=== PATIENT | female | born 1950 | race Caucasian/White ===

== ENCOUNTER 2017-10-05 16:06 | Emergency (ER) | payer BC, OTHER ==
--- NOTE | 2017-10-05 16:25 | Emergency Department Record ---
History of Present Illness - General Chief Complaint: Knee injury Stated Complaint: R KNEE PAIN Time Seen by Provider: 10/05/17 16:19 Source: Patient Mode of Arrival: Ambulatory Limitations: No limitations - History of Present Illness Initial Comments: 67 yo female presents with right knee pain. She tripped over a stool yesterday. She is able to walk but with some pain. No significant swelling. No clicking or popping. No history of prior knee surgery. She has some history of OA of the knee. PCP [facility] Fab[facility]. Complaint: Knee injury Onset/Timin -: Days(s) Injury: Knee: Right Type of Injury: Blunt Place: Home Severity: Severe Improves With: Nothing Worsens With: Weight bearing Context: Fall - Related Data Home Medications Medication Instructions Recorded Confirmed Last Taken Acetaminophen [Tylenol Arthritis] 650 mg PO ASDIR 10/05/17 10/05/17 Unknown Atorvastatin Calcium 20 mg PO DAILY 10/05/17 10/05/17 Unknown Bupropion HCl [Bupropion Xl] 150 mg PO DAILY 10/05/17 10/05/17 Unknown Citalopram Hydrobromide 40 mg PO DAILY 10/05/17 10/05/17 Unknown [Citalopram HBr] Hydrochlorothiazide 25 mg PO DAILY 10/05/17 10/05/17 Unknown Levothyroxine Sodium [Synthroid] 150 mg PO DAILY 10/05/17 10/05/17 Unknown Metoprolol Succinate [Toprol Xl] 50 mg PO DAILY 10/05/17 10/05/17 Unknown Naproxen 250 mg PO BID 10/05/17 10/05/17 Unknown Oxybutynin Chloride [Ditropan] 5 mg PO DAILY 10/05/17 10/05/17 Unknown Previous Rx's Medication Instructions Recorded Hydrocodone/Acetaminophen [Combes 1 each PO TID #12 tablet 10/05/17 5-325 Tablet] Allergies Allergy/AdvReac Type Severity Reaction Status Date / Time Penicillins Allergy HIVES Verified 10/05/17 16:12 Travel Screening - Travel/Exposure Within Last 30 Days Have you traveled within the last 30 days?: No Review of Systems Constitutional: Denies: Chills, Fever, Malaise, Weakness Eyes: Denies: Eye discharge ENT: Denies: Congestion, Throat pain Respiratory: Denies: Cough Cardiovascular: Denies: Chest pain, Syncope Endocrine: Denies: Fatigue Gastrointestinal: Denies: Abdominal pain, Diarrhea, Nausea, Vomiting Genitourinary: Denies: Dysuria, Urgency Musculoskeletal: Reports: Arthralgia. Denies: Back pain, Joint swelling, Myalgia Skin: Denies: Bruising, Change in color, Rash Neurological: Denies: Confusion, Headache Psychiatric: Denies: Anxiety Hematological/Lymphatic: Denies: Blood Clots, Easy bleeding, Easy bruising, Swollen glands Past Medical History - SOCIAL HISTORY Smoking Status: Current every day smoker Alcohol Use: None Drug Use: None - RESPIRATORY Hx Respiratory Disorders: No - CARDIOVASCULAR Hx Cardio Disorders: Yes Hx Hypertension: Yes Comment:: stent placed, high cholesterol - NEURO Hx Neuro Disorders: No - GI Hx GI Disorders: No - Hx Genitourinary Disorders: Yes Hx Bladder Problem: Yes - ENDOCRINE Hx Endocrine Disorders: Yes Hx Thyroid Disease: Yes - MUSCULOSKELETAL Hx Musculoskeletal Disorders: Yes Hx Arthritis: Yes - PSYCH Hx Psych Problems: Yes Hx Anxiety: Yes - HEMATOLOGY/ONCOLOGY Hx Hematology/Oncology Disorders: No Family Medical History Any Significant Family History?: No Physical Exam - General General Appearance: Alert, Oriented x3, Cooperative, No acute distress Limitations: No limitations - Head Head exam: Atraumatic, Normal inspection - Eye Eye exam: Normal appearance. negative: Conjunctival injection, Scleral icterus - ENT ENT exam: Normal exam, Mucous membranes moist Ear exam: Normal external inspection Nasal Exam: Normal inspection - Neck Neck exam: Normal inspection - Rectal Rectal exam: Deferred - exam: Deferred - Extremities Extremities exam: Normal inspection, Full ROM, Tenderness. negative: Joint swelling Image of Full Body: 1 - Mild anterior knee tenderness, no swelling, no edema, stable to anterior and posterior drawer, - Back Back exam: Reports: Full ROM. Denies: Tenderness - Neurological Neurological exam: Alert, Oriented X3 - Psychiatric Psychiatric exam: Normal affect, Normal mood - Skin Skin exam: Dry, Intact, Normal color, Warm Course Vital Signs 10/05/17 16:10 Temperature 98.0 F Pulse Rate 67 Respiratory 16 Rate Blood Pressure 141/74 Pulse Ox 100 - Reevaluation(s) Reevaluation #1: 10/05/17 16:40 The knee XR was reviewed. Degenerative changes noted. No acute displaced fracture seen. Disposition Disposition: Discharge Clinical Impression: Contusion of knee, right Qualifiers: Encounter type: initial encounter Qualified Code(s): S80.01XA - Contusion of right knee, initial encounter Disposition: Home, Self-Care Condition: (1) Good Instructions: Knee Sprain (ED) Additional Instructions: Ice the knee to minimize swelling Avoid weight bearing with the pain Recheck the knee next week if any pain continues. Prescriptions: Hydrocodone/Acetaminophen [Combes 5-325 Tablet] 1 each PO TID #12 tablet Forms: Patient Portal Access Time of Disposition: 16:44 Quality - Quality Measures Quality Measures: N/A - Blood Pressure Screening Does Patient Have Any of the Following: No Blood Pressure Classification: Hypertensive Reading Systolic Measurement: 141 Diastolic Measurement: 74 Screening for High Blood Pressure: < Pre-Hypertensive BP, F/U Documented > [ [id number]] Pre-Hypertensive Follow-up Interventions: Referral to alternative/primary care provider.
--- NOTE | 2017-10-06 07:41 | RADIOLOGY REPORT ---
EXAM: KNEE, RIGHT 4 VIEWS HISTORY: TRIPPED YESTERDAY AND LANDED ON THE RIGHT KNEE. RIGHT KNEE PAIN. TECHNIQUE: Four views of the right knee were obtained. COMPARISON: None. ENCOUNTER: Initial. FINDINGS: The bones appear intact. There is no acute fracture, dislocation, or joint effusion. There are mild tricompartmental arthritic changes with associated marginal osteophytes. There is mild joint space narrowing within the medial compartment. IMPRESSION: 1. NO ACUTE RIGHT KNEE PATHOLOGY. 2. MILD TRICOMPARTMENTAL ARTHRITIC CHANGES. JOB NUMBER: [id number] [facility]
== END 2017-10-05 17:00 | disposition home or self-care (01) ==
LOC: ER 16:06
DX: S80.01XA Contusion of right knee, initial encounter (principal); W18.49XA Other slipping, tripping and stumbling without falling, initial encounter; Y92.009 Unspecified place in unspecified non-institutional (private) residence as the place of occurrence of the external cause
CPT/HCPCS: 99283